=== PATIENT | female | born 1995 | race Caucasian/White ===

== ENCOUNTER 2024-12-25 09:49 | Outpatient (OUT) | payer OTHER, BC, SELFPAY | END 2024-12-25 09:50 | disposition home or self-care (01) | PROVIDERS: PCP Family Medicine; Visit Provider Obstetrics & Gynecology | DX: Z01.818 Encounter for other preprocedural examination (principal); R10.2 Pelvic and perineal pain; N80.9 Endometriosis, unspecified ==

== ENCOUNTER 2025-01-07 10:16 | Day surgery (SDC) | payer OTHER, BC, SELFPAY ==
[2024-12-25 10:33] VITALS: BP 131/87; PULSE 81; TEMP 36.6; O2SAT 99; BMI 54.7
--- NOTE | 2025-01-05 10:59 | PC.NURSE ---
Centerless Grinder Set Up Operator called pt. per Dr. Ventura's reqiest at 1053. Pt. is aware that her surgery is now scheduled for 1130 on 01/07/2025 and to arrive at the hospital at 10:15 for preop. Pt. acknowledges understanding of time.
[2025-01-07] VITALS (14 sets, daily range): BP systolic 128–164; BP diastolic 78–111; PULSE 79–106; TEMP 36.5–36.7; O2SAT 93–99; BMI 53.4
--- NOTE | 2025-01-07 06:00 | ECG_ITS ---
[facility] Test Date: 2025-01-07 Pat Name: WILTON MORENO Department: Room: - Gender: Female Rag Sorter And Cutter: : 1995 Requested By: 1850 Order Number: [id number] Reading MD: BIJU POLLOCK Measurements Intervals [place] Rate: 82 P: 4 IN: 162 QRS: 43 QRSD: 83 T: 38 QT: 369 QTc: 433 Interpretive Statements SINUS RHYTHM No previous ECG available for comparison Electronically Signed On 01-07-2025 19:10:38 EDT by BIJU POLLOCK
[2025-01-07 10:46] LABS: Hematocrit 37.8 % (36.0-48.0); Hemoglobin 11.7 g/dL (12.0-16.0); Immature Granulocytes Abs Auto 0.03 10^3/uL (0.00-0.03); Immature Granulocytes Pct Auto 0.4 % (0.0-0.5); Lymphocytes Absolute Auto 3.7 10^3/uL (1.2-3.8); Mean Corpuscular HGB Conc 31.0 g/dL (29.9-35.2); Mean Corpuscular Hemoglobin 22.7 pg (26.7-34.0); Mean Corpuscular Volume 73.4 fL (81.0-99.0); Platelet Count 480 10^3/uL (150-450); Red Blood Count 5.15 10^6/uL (4.20-5.40); White Blood Count 8.1 10^3/uL (4.0-11.0)
--- NOTE | 2025-01-07 11:05 | PC.NURSE ---
Robert BROOKS reviewed CBC results.
[2025-01-07] MEDS: LIDOCAINE 2% JELLY 10 ML UR (12:15)
--- NOTE | 2025-01-07 12:41 | P.ON_ITS ---
Brief Operative Note Date of procedure: 01/07/25 Pre-op diagnosis general: pelvic pain, pcos Post-op diagnosis: other (uterine polyp, subserosal uterine fibroid) Procedure: NAME OF PROCEDURE: [ D&c hysteroscopy with myosure,dx laparoscopy] findings;endometrial polyp, and anterior uterine fibroid PROCEDURE: The patient was taken back to the Operating Room where she was prepped and draped in normal sterile fashion after being placed under general anesthesia without difficulty. She was also placed in the dorsal lithotomy position. A weighted speculum was placed in the patient?s vagina. The anterior lip of the cervix was identified and grasped with a single tooth tenaculum. The patient?s uterus was then sounded roughly to [? 8] cm. The patient was then gently dilated using Hegar dilators. The hysteroscope was passed through the patient?s cervix into the uterus. Both ostia were identified. fluffy appearing endometrium. No gross evidence of malignancy, no gross evidence of polyps or fibroids. The myosure apparatus was placed through the scope, The myosure was engaged and endometrial curretting were removed along with endometrial polyp, The hysteroscope was then removed from the uterus. The endometrial curettings were sent out to pathology. The single tooth tenaculum was then removed from the patient's anterior lip of the cervix where excellent hemostasis was noted. All instruments were removed from the patient?s vagina. a sponge stick was placed into the patient's vagina. Attention was turned to the patient's abdomen, where a small umbilical incision was made. The fascia was tented using Lavon clamps and the fascia was entered sharply. Confirmation of intraabdominal placement of the 10 mm port was confirmed under direct visualization using a laparoscope. The patient's abdomen was then insufflated using CO2 gas with approximately 4 liters. A second port was placed left laterally, this was done under direct visualization with a 5 mm port. Survey of the patient's abdomen demonstrated normal liver and gallbladder. Survey of the patient's pelvic anatomy demonstrated normal appearing rt and lt ovary and tubes as well as normal appearing uterus, except for anterior uterine fibroid. No endometrial implants could be noted, no evidence of any pelvic disease was seen, normal appearing pelvic cavity. All instruments were removed from the patient's abdomen. The patient's abdomen was deinsufflated of CO2 gas. The patient tolerated the procedure well. Sponge stick was removed from the patient's vagina. The patient's infraumbilical fascia was closed using #0 Vicryl on a GI needle. The patient's skin was closed laterally and infraumbilically using 4-0 Vicryl. The patient tolerated the procedure well. Sponge, lap and needle counts were correct x 2. The patient was taken to Recovery Room in stable condition. Anesthesia: JERRY Surgeon: Gabriel Ventura Nailhead Operator: Melyssa Mullen Estimated blood loss (mL): 5 Pathology: other (endometrial currettings) Condition: stable Disposition: PACU Urinary Catheter Management Urinary Catheter Management Urethral: Cath placed during this visit: no
--- NOTE | 2025-01-07 14:36 | PC.NURSE ---
Pateint urinated blood tinged urine no clots
== END 2025-01-07 14:20 | disposition home or self-care (01) ==
LOC: SURGOUT 10:17
PROVIDERS: PCP Family Medicine; Visit Provider Obstetrics & Gynecology
PROC: (CPT 840; principal; 2025-01-07 11:30)
DX: R10.2 Pelvic and perineal pain (principal); N80.9 Endometriosis, unspecified; N84.0 Polyp of corpus uteri; Z87.891 Personal history of nicotine dependence; Z90.49 Acquired absence of other specified parts of digestive tract; E66.01 Morbid (severe) obesity due to excess calories; Z68.43 Body mass index [BMI] 50.0-59.9, adult
CPT/HCPCS: 49320; 58558; 36415; 82948; 84702; 85025; 93005; J0131; J0330; J1100; J1171; J1200; J1885; J2405; J2704

== ENCOUNTER 2025-01-21 12:15 | Outpatient (OUT) | payer OTHER, BC, SELFPAY ==
--- OUTSIDE RECORDS SUMMARY | 2025-01-08 13:30 | XMS_ITS | Encounter Summary ---
Author Organization [facility] Address [address] [place] [address] Care Team Providers Care Compressor Station Operator Name Role Phone Corona Marcus DO Primary Care Provider [phone] Reason for Referral * Imaging (Routine) - Authorized Specialty Diagnoses / Procedures Referred By Contac t Referred To Contact Radiology Diagnoses Lymphadenopathy, cervical Procedures CT soft tissue neck w IV contrast Bahman Lechuga DO [address] [place] [address] Phone: tel: fax: [facility] [address] [place] [address] fax: Referral ID Status Reason Start Date Expiration Date V isits Requested Visits Authorized [id number] Authorized 04/09/2025 10/06/2025 1 1 Reason for Visit * Reason Comments Swollen Glands New patient : shaquille miller lymph node Encounter Details Date Type Department Care Team (Late st Contact Info) Description 01/08/2025 1:30 PM EDT Office Visit [facility] [address] [place] [id number] Bahman Lechuga DO [address] [place] [address] Neck mass (Primary Dx); Lymphadenopathy, cervical Social History Tobacco Use Types Packs/Day Years Used Date Smoking Tobacco: Former Cigarettes Tobacco Cessation:Counseling Given: Not Answered Alcohol Use Standard Drinks/Week Comments Never 0 (1 standard drink = 0.6 oz pur e alcohol) Comments Unknown Sex and Gender Information Value Date Recorded Sex Assigned at Not on file Legal Sex Female 7:18 PM EDT Gender Identity Not on file Sexual Orientation Not on file documented as of this encounter Last Filed Vital Signs Vital Sign Reading Time Taken Comments Blood Pressure - - Pulse - - Temperature - - Respiratory Rate - - Oxygen Saturation - - Inhaled Oxygen Concentration - - Weight 129 kg (285 lb) 01/08/2025 1:40 PM EDT Height 154.9 cm (5' 1 ) 01/08/2025 1:40 PM EDT Body Mass Index 53.85 01/08/2025 1:40 PM EDT documented in this encounter Progress Notes * Bahman Lechuga, DO - 01/08/2025 1:30 PM EDT Subjective Patient ID: Lora Fischer is a 29 y.o. female who presents for Swollen Glands (New patient : swollen lymph node) HPI 29-year-old white female presents today for evaluation of enlarged lymph node of the right posterior neck. Patient describes enlargement of this mass to be present for the past several months. She also had some enlargement of lymph nodes under her jaw as result of recent dental work. Denies any pain. Does describe some fullness on the right side of her neck. She has undergone shoulder injury on that side in the past. Presents today for further evaluation and treatment Review of Systems This patient denies any pain or fever. Does describe some fullness on the right side of her neck. No longer having any dental pain. Was treated with Keflex by her dentist. She denies any shortness ofbreath. The rest of her review of systems is negative Allergies as of 01/08/2025 - Reviewed 01/08/2025 Allergen Reaction Noted Cephalosporins Rash 01/02/2025 Peanut butter flavoring agent (non-screening) Shortness of breath 02/02/2016 Penicillins Headache, Rash, Shortness of breath, and Swelling 02/14/2024 Past Medical History: Diagnosis Date Abnormal finding on MRI of brain 03/22/2024 ADHD (attention deficit hyperactivity disorder) Allergic rhinitis 01/08/2025 Anxiety Attention deficit hyperactivity disorder (ADHD) 01/08/2025 Cervical radiculopathy 01/08/2025 Elevated total protein 01/08/2025 Encounter for weight management 01/08/2025 Former smoker Gastroesophageal reflux disease 01/08/2025 Generalized anxiety disorder 04/05/2022 GERD (gastroesophageal reflux disease) Glaucoma suspect of both eyes 09/21/2017 Hearing loss on left 01/08/2025 Hearing problem 01/08/2025 Heartburn 08/31/2021 Heavy menstrual period 01/08/2025 Hirsutism 01/08/2025 History of being hospitalized 01/2023 ER - Pain/ HTN Joint instability 03/22/2024 Microcytic anemia 01/08/2025 Migraine 01/08/2025 Migraines Morbid obesity ([facility]) 01/08/2025 Morbid obesity with BMI of 45.0-49.9, adult ([facility]) Muscle tightness 03/22/2024 Myopia, 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 Neck mass 01/08/2025 Optic nerve asymmetry, 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 Otitis externa 01/08/2025 Periumbilical hernia 01/08/2025 Polycystic ovarian syndrome Polycystic ovaries 01/08/2025 Poor posture 01/08/2025 Rib pain 01/08/2025 Skin abnormalities 01/08/2025 Skin infection 01/08/2025 Skin mole 01/08/2025 Spasm of cervical paraspinous muscle 01/08/2025 Current Outpatient Medications: HYDROcodone-acetaminophen ([place]) 5-325 MG tablet, TAKE 1 TABLET BY MOUTH EVERY 4 HOURS NEEDED FOR PAIN FOR 4 DAYS, Disp: , Rfl: Iron Sucrose (VENOFER IV), Infuse 300 mg into a venous catheter 1 (one) time per week, Disp: , Rfl: metFORMIN XR (Glucophage-XR) 500 MG 24 hr tablet, Take 2 tablets (1,000 mg) by mouth in the evening. Take with meals Do not crush, chew, or split., Disp: 30 tablet, Rfl: 11 phentermine (Adipex-P) 37.5 MG tablet, Take 1 tablet (37.5 mg) by mouth in the morning. Take beforemeals., Disp: 30 tablet, Rfl: 0 phentermine (Adipex-P) 37.5 MG tablet, Take 1 tablet (37.5 mg) by mouth in the morning. Take beforemeals., Disp: 90 tablet, Rfl: 0 sulfamethoxazole-trimethoprim (Bactrim DS) 800-160 MG per tablet, Take 1 tablet by mouth every 12 (twelve) hours for 10 days, Disp: 20 tablet, Rfl: 0 Past Surgical History: Procedure Laterality Date CHOLECYSTECTOMY GA TONSILLECTOMY & ADENOIDECTOMY AGE 11/> 06/02/2005 UMBILICAL HERNIA REPAIR 04/2024 had abcess around Social History Socioeconomic History Marital status: Spouse name: Not on file Number of children: Not on file Years of education: Not on file Highest education level: Not on file Occupational History Not on file Tobacco Use Smoking status: Former Types: Cigarettes Smokeless tobacco: Not on file Substance and Sexual Activity Alcohol use: Never Drug use: Never Sexual activity: Not on file Other Topics Concern Not on file Social History Narrative Not on file Social Drivers of Health Financial Resource Strain: Not on file Food Insecurity: Not on file Transportation Needs: Not on file Physical Activity: Not on file Stress: Not on file Social Connections: Not on file Intimate Partner Violence: Not on file Housing Stability: Not on file Objective ENT Physical Exam General Examination: General overview: Normal, age-appropriate, no evidence of distress, obese Head: Normocephalic, atraumatic Eyes: Pupils are equally round and reactive to light and accommodation, extraocular muscles are intact Ears: External ear architecture within normal limits, ear canals are patent, tympanic membranes areintact. Nose: External nose unremarkable, nares patent, septum intact, no evidence of congestion. Oral cavity: Mucosa moist, no evidence of ulcer, mass, or lesion Throat: Clear Neck/thyroid: Neck supple, full range of motion, no cervical lymphadenopathy, no evidence of thyromegaly. Significant soft tissue redundancy. There is some mild fullness of the posterior neck on the right side. This fullness is confirmed with an enlarged lymph node noted on CAT scan. Other lymph nodes of the CAT scan are less than dominant size. She does not have any evidence of significant large scale lymphadenopathy. Lymph nodes: No cervical lymphadenopathy Skin: Warm and dry, no evidence of suspicious lesions, no rash Heart: No jugular venous distention, point of maximal impulse normal Lungs: Good air movement, no audible wheezing, no shortness of breath Chest: Normal shape and expansion Abdomen: Normal, soft, nontender, nondistended Musculoskeletal: Cervical spine normal, full range of motion Extremities: No clubbing, cyanosis, or edema Peripheral pulses: 2+ radial, 2+ carotid Neurologic: Alert and oriented, cranial nerves 2-12 are grossly intact Psych: Alert and oriented, normal affect, no evidence of distress Assessment/Plan Diagnoses and all orders for this visit: Neck mass Comments: I do recommend repeat CAT scan of her neck in 3 months to look for interval change. Lymphadenopathy, cervical Comments: Will place this patient on a course of antibiotic to cover for any possible low- grade infection that may have resulted in her lymph node enlargement. Orders: - CT soft tissue neck w IV contrast; Future - Creatinine, Serum; Future - sulfamethoxazole-trimethoprim (Bactrim DS) 800-160 MG per tablet; Take 1 tablet by mouth every 12(twelve) hours for 10 days documented in this encounter Plan of Treatment Upcoming Encounters Date Type Department Care Team (Late st Contact Info) Description 01/23/2025 1:50 PM EDT Office Visit [facility] [address] [facility] [place] [address] Gabriel Ventura DO [address] [facility] [address] [place] [address] 04/09/2025 2:15 PM EST Office Visit [facility] [address] [place] [id number] Bahman Lechuga DO [address] [place] [address] Scheduled Orders Name Type Priority Associated Diagnoses Orde r Schedule CT soft tissue neck w IV contrast Imaging Routine Lymphadenopathy, cervical Expected: 04/09/2025, Expires: 01/08/2026 Creatinine, Serum Lab Routine Lymphadenopathy, cervical Expected: 01/08/2025 (Approximate), Expires: 01/08/2026 documented as of this encounter Visit Diagnoses Diagnosis Neck mass- Primary Swelling, mass, or lump in head and neck Lymphadenopathy, cervical documented in this encounter Care Teams Compressor Station Operator Relationship Specialty Start Date End Date Corona Marcus DO [address] [facility] [address] [place] [address] PCP - General Family Medicine 10/10/23 documented as of this encounter
--- OUTSIDE RECORDS SUMMARY | 2025-01-21 12:20 | XMS_ITS | Encounter Summary ---
Author Organization [facility] Address [address] [facility] [place] [address] Care Team Providers Care Finish Mender Name Role Phone LorettaCorona garcia Horace PAGE Primary Care Provider Encounter Details Date Type Department Care Team (Late st Contact Info) Description 01/08/2025 Bamboo flowsheet [facility] [address] [place] [phone] Bahman Lechuga, DO [address] [place] [address] Social History Tobacco Use Types Packs/Day Years Used Date Smoking Tobacco: Former Cigarettes Alcohol Use Standard Drinks/Week Comments Never 0 (1 standard drink = 0.6 oz pur e alcohol) Comments Unknown Sex and Gender Information Value Date Recorded Sex Assigned at Not on file Legal Sex Female 7:18 PM EDT Gender Identity Not on file Sexual Orientation Not on file documented as of this encounter Plan of Treatment Upcoming Encounters Date Type Department Care Team (Late st Contact Info) Description 01/23/2025 1:50 PM EDT Office Visit GISELA DEV[facility] [address] [place] [address] Gabriel Ventura DO [address] [facility] [place] [address] 04/09/2025 2:15 PM EST Office Visit [facility] [address] [place] [address] Bahman Lechuga DO [address] [place] [address] documented as of this encounter Visit Diagnoses Not on filedocumented in this encounter Care Teams Finish Mender Relationship Specialty Start Date End Date Corona Marcus DO [address] [facility] [address] [place] [address] PCP - General Family Medicine 10/10/23 documented as of this encounter
--- OUTSIDE RECORDS SUMMARY | 2025-01-21 12:20 | XMS_ITS | Encounter Summary ---
Author Organization [facility] Address [address] [facility] [place] [address] Care Team Providers Care Housing Counselor Name Role Phone Corona Marcus Primary Care Provider Encounter Details Date Type Department Care Team (Late st Contact Info) Description 12/25/2024 Abstract [facility] [address] [place] [address] Gabriel Ventura DO [facility] [address], [place] [address] Social History Tobacco Use Types Packs/Day Years [...] Description 01/23/2025 1:50 PM EDT Office Visit [facility] [address] [place] [address] Gabriel Ventura DO [address] [place], [place] [id number] 04/09/2025 2:15 PM EST Office Visit [facility] [address] [place] [address] Bahman Lechuga, DO [address] [facility] [place] [address] documented as of this encounter Visit Diagnoses Not on filedocumented in this encounter Care Teams Housing Counselor Relationship Specialty Start Date End Date Corona Marcus DO [address] [place] [address] [address] [place] [address] PCP - General Family Medicine 10/10/23 documented as of this encounter
--- OUTSIDE RECORDS SUMMARY | 2025-01-21 12:20 | XMS_ITS | Encounter Summary ---
Author Organization [facility] Address [address] [place] [address], [address] [place] [address] Care Team Providers Care Software Educator Name Role Phone Unavailable Primary Care Provider Unavailabl e Reason for Referral * Imaging (Routine) - Open Specialty Diagnoses / Procedures Referred By Contac t Referred To Contact Diagnoses Cardiomegaly Procedures Echo (TTE) complete (PRN contrast/bubble/strain/3D) W[place] ECHO TTHRC R-T 2D W/WOM-MODE COMPL SPEC&COLR D W[place] TTE W OR WO FOL WCON,DOPPLER Aj Dallas MD [address] [place] [address] Phone: tel: Referral ID Status Reason Start Date Expiration Date Visits Re quested Visits Authorized [id number] Open 02/14/2024 02/13/2025 1 1 Encounter Details Date Type Department Care Team (Latest Contact Info) Description 02/14/2024 Transcribe Orders Odom Pre Access [address] [place] [id number] Aj Dallas MD [address] [place] [address] Cardiomegaly (Primary Dx) Social History Tobacco Use Types Packs/Day Years Used Date Smoking Tobacco: Never Assessed Comments Unknown Sex and Gender Information Value Date Recorded Sex Assigned at Not on file Legal Sex Female 1:44 PM EDT Gender Identity Not on file Sexual Orientation Not on file documented as of this encounter Plan of Treatment Scheduled Orders Name Type Priority Associated Diagnoses Orde r Schedule Echo (TTE) complete (PRN contrast/bubble/st rain/3D) CV Echocardiography Routine Cardiomegaly Expected: 02/14/2024, Expires: 02/13/2025 documented as of this encounter Visit Diagnoses Diagnosis Cardiomegaly- Primary documented in this encounter
--- OUTSIDE RECORDS SUMMARY | 2025-01-21 12:20 | XMS_ITS | Encounter Summary ---
Author Organization [facility] Address [address] [facility] [place] [address] Care Team Providers Care Metal Work Duct Installer Name Role Phone Corona Marcus Primary Care Provider Encounter Details Date Type Department Care Team (Late st Contact Info) Description 01/07/2025 Abstract [facility] [address] [place] [address] Gabriel Ventura DO [facility] [address], [place] [address] Social History Tobacco Use Types Packs/Day Years [...] Office Visit [facility] [address] [place] [address] Gabriel Ventura DO [address] [place], [place] [id number] 04/09/2025 2:15 PM EST Office Visit [facility] [address] [place] [phone] Bahman Lechuga, DO [address] [place] [address] documented as of this encounter Visit Diagnoses Not on filedocumented in this encounter Care Teams Metal Work Duct Installer Relationship Specialty Start Date End Date Corona Marcus DO [address] [place] [address] [address] [place] [address] PCP - General Family Medicine 10/10/23 documented as of this encounter
--- OUTSIDE RECORDS SUMMARY | 2025-01-21 12:20 | XMS_ITS | Clinical Summary ---
Author Organization [facility] Address [address] [place] [address] Phone Care Team Providers Care Cost Control Analyst Name Role Phone Corona Marcus DO Primary Care Provider + Social History Tobacco Use Types Packs/Day Years Used Date Smoking Tobacco: Never Assessed Comments Unknown Sex and Gender Information Value Date Recorded Sex Assigned at Not on file Legal Sex Female 9:19 AM EST Gender Identity Not on file Sexual Orientation Not on file Last Filed Vital Signs Vital Sign Reading Time Taken Comments Blood Pressure 135/83 04/27/2023 12:46 PM EST Pulse 77 04/27/2023 12:46 PM EST Temperature - - Respiratory Rate - - Oxygen Saturation 99% 04/27/2023 12:46 PM EST Inhaled Oxygen Concentration - - Weight - - Height - - Body Mass Index - - Plan of Treatment Health Maintenance Due Date Last Done Comments HIV Screening 1994 Lipid Panel 1994 Yearly Adult Physical 1994 MMR Vaccines (1 of 1 - Stand vivian series) 1995 Hepatitis C Screening 2012 Hepatitis B Vaccines (1 of 3 - 19+ 3-dose series) 2013 Cervical Cancer Screening 2015 HPV/Cotest 2015 Pap Smear 2015 DTaP/Tdap/Td Vaccines (1 - Tdap) 2016 HPV Vaccines (1 - 3-dose sta ndard series) 2021 COVID-19 Vaccine ( - 2023-2 5 season) 2024 Influenza Vaccine (#1) 2024 Zoster Vaccines (1 of 2) 2044 HIB Vaccines Aged Out No longer eligi ble based on patient's age to complete this topic Hepatitis A Vaccines Aged Out No long er eligible based on patient's age to complete this topic IPV Vaccines Aged Out No longer eligi ble based on patient's age to complete this topic Meningococcal Vaccine Aged Out No will irene eligible based on patient's age to complete this topic Pneumococcal Vaccine: Pediat rics and At-Risk Adult Patients Aged Out No longer iglesia gible based on patient's age to complete this topic Rotavirus Vaccines Aged Out No longer eligible based on patient's age to complete this topic Insurance [facility] Care Teams Cost Control Analyst Relationship Specialty Start Date End Date Corona Marcus DO [address] [place] [address] PCP - General Family Medicine 04/27/23
--- OUTSIDE RECORDS SUMMARY | 2025-01-21 12:20 | XMS_ITS | Clinical Summary ---
Author Organization [facility] Address [facility] [place] [id number] [address] [place] [address] Care Team Providers Care Plant Wrapper Name Role Phone Aj Dallas MD Primary Care Provider [phone] Allergies No known active allergies Medications No known medications Active Problems Problem Noted Date Diagnosed Date Heartburn 08/31/2021 Family History Medical History Relation Name Comments Heart attack Father Stroke Father Relation Name Status Comments Brother Alive Father Alive Mother Alive Sister Alive Social History Tobacco Use Types Packs/Day Years Used Date Smoking Tobacco: Never Smokeless Tobacco: Never Alcohol Use Standard Drinks/Week Comments Never 0 (1 standard drink = 0.6 oz pur e alcohol) Comments Unknown Sex and Gender Information Value Date Recorded Sex Assigned at Not on file Legal Sex Female 11:34 AM EDT Gender Identity Not on file Sexual Orientation Not on file Last Filed Vital Signs Vital Sign Reading Time Taken Comments Blood Pressure - - Pulse - - Temperature 36.8 C (98.2 F) 08/31/2021 1:10 PM EDT Respiratory Rate - - Oxygen Saturation - - Inhaled Oxygen Concentration - - Weight 143.3 kg (316 lb) 08/31/2021 1:10 PM EDT Height - - Body Mass Index - - Plan of Treatment Health Maintenance Due Date Last Done Comments Depression Screening 2006 Tobacco Screening 2006 Adult BMI Screening 2012 DTaP,Tdap and Td Vaccines (1 - Tdap) 2013 Pap Smear 2015 Influenza Vaccine 12/31/2024 Medical Devices Not on file Insurance [employer] Care Teams Plant Wrapper Relationship Specialty Start Date End Date Aj Dallas MD [address] [place] [address] PCP - General Family Medicine 02/13/24
--- OUTSIDE RECORDS SUMMARY | 2025-01-21 12:20 | XMS_ITS | Encounter Summary ---
Author Organization [facility] Address [address] [facility] [address] Care Team Providers Care Microsoft Dynamics Consultant Name Role Phone LorettaCorona garcia Horace PAGE Primary Care Provider Encounter Details Date Type Department Care Team (Latest Contact Info) Description 01/08/2025 Travel Social History Tobacco Use Types Packs/Day Years [...] 01/23/2025 1:50 PM EDT Office Visit [facility] Alex OBASYA [address] [place] [address] Gabriel Ventura DO [address] [facility] [address] [place], [place] [id number] 04/09/2025 2:15 PM EST Office Visit [facility] [address] [place] [address] Bahman Lechuga, DO [address] [place] [address] documented as of this encounter Visit Diagnoses Not on filedocumented in this encounter Care Teams Microsoft Dynamics Consultant Relationship Specialty Start Date End Date Corona Marcus DO [address] [facility] [address] [place] [address] PCP - General Family Medicine 10/10/23 documented as of this encounter
--- OUTSIDE RECORDS SUMMARY | 2025-01-21 12:20 | XMS_ITS | Encounter Summary ---
Author Organization [facility] Address [address] [facility] [place] [address] Care Team Providers Care Junior Systems Administrator Name Role Phone LroettaCorona garcia Primary Care Provider Encounter Details Date Type Department Care Team (Late st Contact Info) Description 01/07/2025 External Result Encounter N[facility] External Department Unsolicited Gabriel Ventura DO [address] [place] [address] Social History Tobacco Use Types Packs/Day Years [...] EDT Office Visit NOM[facility] DEVINE [address] [place] [address] Gabriel Ventura DO [address] [place] [id number] 04/09/2025 2:15 PM EST Office Visit [facility] [address] [place] [address] Bahman Lechuga DO [address] [facility] [place] [address] documented as of this encounter Procedures Procedure Name Priority Date/Time Associated Diagnosis Comments PATHOLOGY REQUEST FOR LAB EMMA Routine 01/07/2025 12:37 PM EDT documented in this encounter Results * PATHOLOGY REQUEST FOR LAB EMMA (01/07/2025 12:37 PM EDT) PATHOLOGY REQUEST FOR LAB EMMA 01/18/2025 8:11 AM EDT [facility] Comment:See report. Scanned copy available in EMR. Other Topography unknown / Unknown 01/07/2025 12:37 PM EDT 01/08/2025 2:07 PM EDT Gabriel Ventura DO LAB BLOOD ORDERABLES Final Resul t [facility] [address] [place] [address], [facility] [address] [place] [address] documented in this encounter Visit Diagnoses Not on filedocumented in this encounter Care Teams Junior Systems Administrator Relationship Specialty Start Date End Date Corona Marcus DO [address] [place] [address] [address] [place] [address] PCP - General Family Medicine 10/10/23 documented as of this encounter
--- OUTSIDE RECORDS SUMMARY | 2025-01-21 12:20 | XMS_ITS | Clinical Summary ---
Author Organization [facility] Address [address] [place] [address] Care Team Providers Care Facilities Planner Name Role Phone Corona Marcus DO Primary Care Provider Allergies Active Allergy Reactions Criticality Noted Date Comments Cephalosporins Rash High 01/02/2025 chest heavyness Peanut Butter Flavoring Agent (Non-Screening) Shortness of breath High 02/02/2016 Penicillins Headache,Rash,Short ness of breath,Swelling High 02/14/2024 Other Reaction(s): Congestion Medications Iron Sucrose (VENOFER IV) Infuse 300 mg into a venous catheter 1 (one) time per week Active phentermine (Adipex-P) 37.5 MG tabletIndicatio ns:Encounter for weight management Take 1 tablet (37.5 mg) by mouth in the morning. Take before meals. 30 tablet 5 Active metFORMIN XR (Glucophage-XR) 500 MG 24 hr tabletIndicatio ns:Encounter for weight management Take 2 tablets (1,000 mg) by mouth in the evening. Take with meals Do not crush, chew, or split. 30 tablet 11 5 Active phentermine (Adipex-P) 37.5 MG tabletIndicatio ns:Encounter for weight management Take 1 tablet (37.5 mg) by mouth in the morning. Take before meals. 90 tablet 5 04/02/20 25 Active HYDROcodone-que taminophen ([place]) 5-325 MG tablet TAKE 1 TABLET BY MOUTH EVERY 4 HOURS NEEDED FOR PAIN FOR 4 DAYS Active sulfamethoxazol e-trimethoprim (Bactrim DS) 800-160 MG per tabletIndicatio ns:Lymphadenopa thy, cervical Take 1 tablet by mouth every 12 (twelve) hours for 10 days 20 tablet 01/19/20 25 Active Problems Problem Noted Date Diagnosed Date Primary insomnia 03/29/2023 Hypersomnia 03/29/2023 Paresthesias 03/07/2023 Pre-syncope 03/04/2023 Resolved Problems Problem Noted Date Diagnosed Date Resolved Date Allergic rhinitis 01/08/2025 01/08/2025 Attention deficit hyperactiv ity disorder (ADHD) 01/08/2025 01/08/2025 Cervical radiculopathy 01/08/202501/08 Elevated total protein 01/08/202501/08 Encounter for weight management 01/08/2025 01/08/2025 Gastroesophageal reflux disease 01/08/2025 01/08/2025 Hearing loss on left 01/08/2025 025 Hearing problem 01/08/2025 01/08/2025 Heavy menstrual period 01/08/202501/08 Hirsutism 01/08/2025 01/08/2025 Microcytic anemia 01/08/2025 01/08/2025 Migraine 01/08/2025 01/08/2025 Morbid obesity 01/08/2025 01/08/2025 Otitis externa 01/08/2025 01/08/2025 Periumbilical hernia 01/08/2025 025 Polycystic ovaries 01/08/2025 Poor posture 01/08/2025 01/08/2025 Rib pain 01/08/2025 01/08/2025 Skin abnormalities 01/08/2025 Skin infection 01/08/2025 01/08/2025 Skin mole 01/08/2025 01/08/2025 Neck mass 01/08/2025 01/08/2025 Spasm of cervical paraspinous muscle 01/08/2025 01/08/2025 Abnormal finding on MRI of brain 03/22/2024 01/08/2025 Joint instability 03/22/2024 01/08/2025 Muscle tightness 03/22/2024 01/08/2025 Generalized anxiety disorder 04/05/2022 01/08/2025 Heartburn 08/31/2021 01/08/2025 Myopia, 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 01/08/2025 Optic nerve asymmetry, 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 01/08/2025 Glaucoma suspect of both eyes 09/21/2017 01/08/2025 Encounters Date Type Department Care Team Description 01/21/2025 Telephone [facility] YANGN [address] [place] [address] Gabriel Ventura, DO 01/10/2025 Abstract [facility] DEVINE [address] [place] [address] Gabriel Ventura, DO 01/10/2025 Telephone [facility] YANGN [address] [facility] [place] [address] Marilin Montiel LPN 01/08/2025 1:30 PM EDT Office Visit [facility] [address] [place] [address] Bahman Lechuga, DO Neck mass (Primary Dx); Lymphadenopathy, cervical 01/08/2025 Bamboo flowsheet [facility] [address] [place] [address] Bahman Lechuga, DO 01/08/2025 Travel 01/07/2025 External Result Encounter NOMS External Department Unsolicited Gabriel Ventura, DO 01/07/2025 Abstract [facility] OHGYN [address] [place] [address] Gabriel Ventura, DO 01/07/2025 Clinisync Result Encounter NOMS External Department Unsolicited Gabriel Ventura, DO 01/02/2025 3:30 PM EDT Office Visit [facility] DEVINE [address] [place] [address] Era Josue PA Encounter for weight management 01/02/2025 Bamboo flowsheet [facility] [address] [facility] [place] [address] Era Josue PA 12/25/2024 Abstract [facility] OHGYN [address] [facility] [place] [address] Gabriel Ventura DO 12/10/2024 1:10 PM EDT Office Visit [facility] DEVINE [address] [facility] [place] [address] Gabriel Ventura DO Endometriosis; Encounter for weight management; Pre-op examination; Pelvic pain 12/10/2024 Bamboo flowsheet [facility] [address] [facility] [place] [address] Gabriel Ventura DO 12/10/2024 Travel 11/05/2024 2:30 PM EDT Office Visit NOMKhari DEVINE [address] [facility] [address] Era Josue PA Encounter for weight management 11/05/2024 1:00 PM EDT Ancillary Procedure NOM[facility]ari DEVINE [address] [facility] [place] [address] PCOS (polycystic ovarian syndrome); Abnormal uterine bleeding (AUB) 11/05/2024 Travel from Last 3 Months Family History Medical History Relation Name Comments Cardiac arrest Father Mental illness Father Stroke Father Alcohol abuse Mother Hypertension Mother No Known Problems Other Grandparents Relation Name Status Comments Father Mother Other Grandparents Social History Tobacco Use Types Packs/Day Years [...] Sign Reading Time Taken Comments Blood Pressure 118/74 01/02/2025 4:05 PM EDT Pulse 77 03/29/2023 4:15 PM EST Temperature - - Respiratory Rate 16 03/29/2023 4:15 PM EST Oxygen Saturation 97% 03/29/2023 4:15 PM EST Inhaled Oxygen Concentration - - Weight 129 kg (285 lb) 01/08/2025 1:40 PM EDT Height 154.9 cm (5' 1 ) 01/08/2025 1:40 PM EDT Body Mass Index 53.85 01/08/2025 1:40 PM EDT Plan of Treatment Upcoming Encounters Date Type Department Care Team (Late st Contact Info) Description 01/23/2025 1:50 PM EDT Office Visit [facility] Isai OBGYJudith [address] [facility] [place] [address] Gabriel Ventura DO [address] [facility] [address] 04/09/2025 2:15 PM EST Office Visit [facility] [address] [place] [address] Bahman Lechuga, DO [address] [place] [address] Procedures Procedure Name Priority Date/Time Associated Diagnosis Comments PATHOLOGY REQUEST FOR LAB EMMA Routine 01/07/2025 12:37 PM EDT ALL CBC WITH AUTO DIFF Routine 01/07/2025 10:21 AM EDT TBH PREG QUANT HCG Routine 01/07/2025 10 :21 AM EDT US PELVIC COMPLETE W/ TV Routine 11/05/2024 1:25 PM EDT PCOS (polycystic ovarian syndrome) Abnormal uterine bleeding (AUB) from Last 3 Months Results * PATHOLOGY REQUEST FOR LAB EMMA (01/07/2025 12:37 PM EDT) PATHOLOGY REQUEST FOR LAB EMMA 01/18/2025 8:11 AM EDT [facility] Comment:See report. Scanned copy available in EMR. Other Topography unknown / Unknown 01/07/2025 12:37 PM EDT 01/08/2025 2:07 PM EDT Gabriel Audrey DO LAB BLOOD ORDERABLES Final Resul t Performing Organization Address City/[facility]/ZIP Co de Phone Number [facility] [address] [place] [id number], [place] [address] [place] [phone] * TBH PREG QUANT HCG (01/07/2025 10:21 AM EDT) [facility] HCG QUANTITATIVE <1 mIU/mL TBH Comment: 5-50 0.2-1 WEEK 50-500 1-2 WEEKS 100-5,000 2-3 WEEKS 500-10,000 3-4 WEEKS 1,000-50,000 4-5 WEEKS 10,000-100,000 5-6 WEEKS 15,000-200,000 6-8 WEEKS 10,000-100,000 2-3 MONTHS 01/07/2025 10:2 1 AM EDT 01/07/2025 10:22 AM EDT Narrative CLINISYNC - 01/07/2025 10:49 AM EDT Gabriel Audrey DO CLINISYNC Final Result CLINISYNC TB * (ABNORMAL) ALL CBC WITH AUTO DIFF (01/07/2025 10:21 AM EDT) [facility] TBH WBC 8.1 4.0 - 11.0 10 3/uL TBH TBH RBC 5.15 4.20 - 5.40 10 6/uL TBH TBH HGB 11.7(L) 12.0 - 16.0 g/dL TBH TBH HCT 37.8 36.0 - 48.0 % TBH TBH MCV 73.4(L) 81.0 - 99.0 fL TBH TBH MCH 22.7(L) 26.7 - 34.0 pg TBH TBH MCHC 31.0 29.9 - 35.2 g/dL TBH TBH RDW 24.6(H) 11.0 - 15.0 % TBH Comment:ANISOCYTOSIS 1+ TBH PLT 480(H) 150 - 450 10 3/uL TBH TBH MPV 8.5(L) 9.5 - 13.5 fL TBH NEUTROPHILS PERCENT AUTO 42.7(L) 43.0 - 75.0 % TBH LYMPHOCYTES PERCENT AUTO 45.2 20.5 - 60.0 % TBH MONOCYTES PERCENT AUTO 5.9 1.7 - 12.0 % TBH TBH EO % 5.1 0.9 - 7.0 % TBH BASOPHILS PERCENT AUTO 0.7 0.2 - 2.0 % TBH IMMATURE GRANULOCYTES PCT AUTO 0.4 0.0 - 0.5 % TBH NEUTROPHILS ABSOLUTE AUTO 3.5 1.4 - 6.5 10 3/uL TBH LYMPHOCYTES ABSOLUTE AUTO 3.7 1.2 - 3.8 10 3/uL TBH MONOCYTES ABSOLUTE AUTO 0.5 0.3 - 0.8 10 3/uL TBH TBH EO # 0.4 0.0 - 0.7 10 3/uL TBH BASOPHILS ABSOLUTE AUTO 0.1 0.0 - 0.1 10 3/uL TBH IMMATURE GRANULOCYTES ABS AUTO 0.03 0.00 - 0.03 10 3/uL TBH 01/07/2025 10:2 1 AM EDT 01/07/2025 10:22 AM EDT Narrative CLINISYNC - 01/07/2025 10:58 AM EDT us Gabriel Audrey DO CLINISYNC Final Result [facility] * US Pelvis w/ TV (11/05/2024 1:25 PM EDT) Anatomical Region Laterality Modality Pelvis Ultrasound 11/06/2024 1:00 PM EDT Impressions 11/06/2024 2:43 PM EDT 1. 14 mm endometrial thickness, no cystic changes or focal mass. 2. Probable anterior uterine body intramural fibroid TRANSCRIBED BY: ELECTRONICALLY SIGNED BY: Roberto Brown MD Narrative 11/06/2024 2:43 PM EDT FINDINGS: Uterus 9.0 x 5.1 x 5.1 cm Endometrium 14 mm Right ovary 3.2 x 2.8 x 2.6 cm Left ovary Not seen Anteversion and anteflexion of the uterine body/fundus. Heterogeneous anterior uterine body, 2 x 2 cm area, likely intramural fibroid. No pelvic fluid. 14 mm endometrium, no cystic changes. No primary endometrial nodule or mass. Nonvisualization of the left ovary. No left adnexal mass. Normal right ovary, several 4-6 mm follicles. No neighboring fluid or shadowing. Procedure Note Roberto Brown MD - 11/06/2024 FINDINGS: Uterus 9.0 x 5.1 x 5.1 cm Endometrium 14 mm Right ovary 3.2 x 2.8 x 2.6 cm Left ovary Not seen Anteversion and anteflexion of the uterine body/fundus. Heterogeneousanterior uterine body, 2 x 2 cm area, likely intramural fibroid. No pelvic fluid. 14 mm endometrium, no cystic changes. No primary endometrial nodule ormass. Nonvisualization of the left ovary. No left adnexal mass. Normal rightovary, several 4-6 mm follicles. No neighboring fluid or shadowing. IMPRESSION: 1. 14 mm endometrial thickness, no cystic changes or focal mass. 2. Probable anterior uterine body intramural fibroid TRANSCRIBED BY: ELECTRONICALLY SIGNED BY: Roberto Brown MD Gabriel Ventura DO [facility] [place] PROCEDURES Final Result from Last 3 Months Insurance [facility] Care Teams Facilities Planner Relationship Specialty Start Date End Date Corona Marcus DO [facility] [address] [place] [address] PCP - General Family Medicine 10/10/23
--- OUTSIDE RECORDS SUMMARY | 2025-01-21 12:20 | XMS_ITS | Clinical Summary ---
Author Organization [facility] Address [address] [place] [address], [address] [place] [address] Care Team Providers Care Pitch Gatherer Name Role Phone Unavailable Primary Care Provider Unavailabl e Allergies Active Allergy Reactions Criticality Noted Date Comments Peanut Butter Flavoring Agen t (Non-Screening) Shortness Of Breath High 02/02/2016 Medications omeprazole (PRILOSEC) 20 MG delayed release capsule Take 20 mg by mouth Daily Active naproxen (NAPROSYN) 500 MG tablet Take 1 tablet by mouth 2 times daily for 20 doses 30 tablet 02/02/2016 Active Social History Tobacco Use Types Packs/Day Years Used Date Smoking Tobacco: Never Assessed Comments Unknown Sex and Gender Information Value Date Recorded Sex Assigned at Not on file Legal Sex Female 1:44 PM EDT Gender Identity Not on file Sexual Orientation Not on file Last Filed Vital Signs Vital Sign Reading Time Taken Comments Blood Pressure 122/69 02/02/2016 4:10 PM EDT Pulse 94 02/02/2016 4:10 PM EDT Temperature 36.9 C (98.5 F) 02/02/2016 1:47 PM EDT Respiratory Rate 16 02/02/2016 4:10 PM EDT Oxygen Saturation 99% 02/02/2016 4:10 PM EDT Inhaled Oxygen Concentration - - Weight 108 kg (238 lb 1.6 oz) 02/02/2016 1:47 PM EDT Height 157.5 cm (5' 2 ) 02/02/2016 1:47 PM EDT Body Mass Index 43.55 02/02/2016 1:47 PM EDT Plan of Treatment Not on file Insurance PENDING MEDICAID on file [place]ICAID [place]
--- OUTSIDE RECORDS SUMMARY | 2025-01-21 12:20 | XMS_ITS | Encounter Summary ---
Author Organization [facility] Address [address] [place] [address] Care Team Providers Care Needleworker Name Role Phone Corona Marcus DO Primary Care Provider Encounter Details Date Type Department Care Team (Late st Contact Info) Description 01/21/2025 Telephone [facility] [address] [place] [address] Gabriel Ventura DO [address] [place], [facility] Social History Tobacco Use Types Packs/Day Years [...] on file documented as of this encounter Miscellaneous Notes * Telephone Encounter - Danielle Mcduffie LPN - 01/21/2025 11:55 AM EDT Patient called and she states that she was at the ER on Tuesday for losing blood after procedue and they patched her through to Dr and labs were to be ordered and she is at [facility] and they are stating these are not there. Patient was advised would send at this time for he. documented in this encounter Plan of Treatment Upcoming Encounters Date Type Department Care Team (Late st Contact Info) Description 01/23/2025 1:50 PM EDT Office Visit G[facility]ELA Alex OBGYJudith [address] [facility] [place] [address] Gabriel Ventura DO [address] [facility] [place] [address] 04/09/2025 2:15 PM EST Office Visit [facility] [address] [place] [address] Bahman Lechuga, DO [address] [place] [address] Scheduled Orders Name Type Priority Associated Diagnoses Orde r Schedule Ferritin Lab Routine Endometriosis Abnormal uterine bleeding (AUB) PCOS (polycystic ovarian syndrome) Expected: 01/21/2025 (Approximate), Expires: 01/21/2026 Transferrin Lab Routine Endometriosis Abnormal uterine bleeding (AUB) PCOS (polycystic ovarian syndrome) Expected: 01/21/2025, Expires: 01/21/2026 CBC and differential Lab Routine Endometriosis Abnormal uterine bleeding (AUB) PCOS (polycystic ovarian syndrome) Expected: 01/21/2025 (Approximate), Expires: 01/21/2026 documented as of this encounter Visit Diagnoses Diagnosis Endometriosis Endometriosis, site unspecified Abnormal uterine bleeding (AUB) PCOS (polycystic ovarian syndrome) Polycystic ovaries documented in this encounter Care Teams Needleworker Relationship Specialty Start Date End Date Corona Marcus DO [address] [place] [address] PCP - General Family Medicine 10/10/23 documented as of this encounter
--- OUTSIDE RECORDS SUMMARY | 2025-01-21 12:20 | XMS_ITS | Encounter Summary ---
Author Organization [facility] Address [address] [facility] [place] [address] Care Team Providers Care J2Ee Software Engineer Name Role Phone LorettaCorona garcia Primary Care Provider Encounter Details Date Type Department Care Team (Late st Contact Info) Description 01/07/2025 Clinisync Result Encounter NOMS External Department Unsolicited Gabriel Ventura DO [address] [place] [address] Social History Tobacco Use Types Packs/Day Years [...] EDT Office Visit NOM[facility]ari Alex OBASYA [address] [place] [address] Gabriel Ventura DO [address] [place] [id number] 04/09/2025 2:15 PM EST Office Visit [facility] [address] [place] [address] Bahman Lechuga, DO [address] [place] [address] documented as of this encounter Procedures Procedure Name Priority Date/Time Associated Diagnosis Comments TBH PREG QUANT HCG Routine 01/07/2025 10 :21 AM EDT ALL CBC WITH AUTO DIFF Routine 01/07/2025 10:21 AM EDT documented in this encounter Results * (ABNORMAL) ALL CBC WITH AUTO DIFF (01/07/2025 10:21 AM EDT) TBH WBC 8.1 4.0 - 11.0 10 [...] us Gabriel Audrey DO CLINISYNC Final Result CLINISYNC TBH * TBH PREG QUANT HCG (01/07/2025 10:21 AM EDT) HCG QUANTITATIVE <1 mIU/mL TBH Comment: 5-50 0.2-1 WEEK 50-500 1-2 WEEKS 100-5,000 2-3 WEEKS 500-10,000 3-4 WEEKS 1,000-50,000 4-5 WEEKS 10,000-100,000 5-6 WEEKS 15,000-200,000 6-8 WEEKS 10,000-100,000 2-3 MONTHS 01/07/2025 10:2 1 AM EDT 01/07/2025 10:22 AM EDT Narrative CLINISYNC - 01/07/2025 10:49 AM EDT Gabriel Audrey DO CLINISYNC Final Result CLINISYNC TBH documented in this encounter Visit Diagnoses Not on filedocumented in this encounter Care Teams J2Ee Software Engineer Relationship Specialty Start Date End Date Corona Marcus DO [address] [facility] [address] [place] [address] PCP - General Family Medicine 10/10/23 documented as of this encounter
--- OUTSIDE RECORDS SUMMARY | 2025-01-21 12:20 | XMS_ITS | Clinical Summary ---
Author Organization [facility] Address [address] [place], [place] [address] Care Team Providers Care Laboratory Administrative Director Name Role Phone Surinder Mackey MD Unavailable [phone] Surinder Mackey MD Unavailable [phone] Aj Dallas MD Primary Care Provider [phone] Allergies No known active allergies Medications No known medications Active Problems Problem Noted Date Diagnosed Date Joint instability 03/22/2024 Muscle tightness 03/22/2024 Abnormal finding on MRI of brain 03/22/2024 Glaucoma suspect of both eyes 09/21/2017 Optic nerve asymmetry, 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 Myopia, 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 Regular astigmatism, 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 Family History Medical History Relation Comments Drug abuse Father Stroke Father Diabetes Paternal Grandfather Headache No Family History Migraines No Family History No Ocular Disease No Family History Relation Status Comments Father Paternal Grandfather Social History Tobacco Use Types Packs/Day Years Used Date Smoking Tobacco: Never Smokeless Tobacco: Never Alcohol Use Standard Drinks/Week Comments No 0 (1 standard drink = 0.6 oz pur e alcohol) PHQ-2 Answer Date Recorded PHQ-2 score 1 03/08/2024 Area Deprivation Index Answer Date Candido rded National Score (1-100), lowe r number is lower risk 62 03/08/2024 State Score (1-10), lower number is lower risk 4 03/08/2024 Data from: https://www.neighborhoodatlas.medicine.[facility].edu/. Last address used for calculation [address] 03/08/2024 Comments Unknown Sex and Gender Information Value Date Recorded Sex Assigned at Female 02/07/2024 10:20 AM EDT Legal Sex Female 4:23 PM EDT Gender Identity Female 02/07/2024 10:20 AM EDT Sexual Orientation Not on file Plan of Treatment Health Maintenance Due Date Last Done Comments Anxiety Screening 2012 Depression Screening 2012 HIV Screening 2012 Hepatitis C Screening 2012 DTaP,Tdap,Td Vaccine (1 - Tdap) 2013 Hepatitis B Vaccine (1 of 3 - 19+ 3-dose series) 05/01 Cervical Cancer Screening 2015 HPV Vaccine (1 - 3-dose SCDM series) 2021 Influenza Vaccine (#1) 2024 Insurance BLUE PREFERRED EPO Care Teams Laboratory Administrative Director Relationship Specialty Start Date End Date Aj Dallas MD [address] [place] [address] PCP - General Family Medicine 03/08/24 Surinder Mackey MD [address] [place] [address] [place] [address] Orthopedics 01/26/24 Surinder Mackey MD [address] [place] [address] Referring Orthopedics 02/07/24
--- OUTSIDE RECORDS SUMMARY | 2025-01-21 12:20 | XMS_ITS | Clinical Summary ---
Author Organization [facility] Address [address] [place] [address] Care Team Providers Care Inspector And Tester Name Role Phone Antonio Dallas MD Primary Care Provider [phone] Allergies Active Allergy Reactions Criticality Noted Date Comments Penicillins Congestion,Headache, Rash,Shortness of Breath,Swelling High 02/14/2024 Medications No known medications Active Problems No known active problems Social History Tobacco Use Types Packs/Day Years Used Date Smoking Tobacco: Never Smokeless Tobacco: Never Tobacco Cessation:Counseling Given: Not Answered Comments Unknown Sex and Gender Information Value Date Recorded Sex Assigned at Not on file Legal Sex Female 9:18 AM EDT Gender Identity Female 02/14/2024 12:16 PM EDT Sexual Orientation Not on file Plan of Treatment Health Maintenance Due Date Last Done Comments HEPATITIS C VIRUS SCREENING 1994 TETANUS 1994 HIV SCREENING DISCUSSION 2009 HEP B VACCINE (1 of 3 - 19+ 3-dose series) 2013 TDAP (ADULT) 2013 CERVICAL CANCER SCREENING DISCUSSION 2015 HPV VACCINE (1 - 3-dose SCDM series) 2021 COVID-19 VACCINE ( - 2023-2 5 season) 2024 INFLUENZA VACCINE (#1) 2024 PNEUMOCOCCAL VACCINE SERIES Aged Out No longer eligible based on patient's age to complete this topic Insurance [facility] POS Care Teams Inspector And Tester Relationship Specialty Start Date End Date Antonio Dallas MD PCP - General 02/14/24
--- OUTSIDE RECORDS SUMMARY | 2025-01-21 12:20 | XMS_ITS | Encounter Summary ---
Author Organization [facility] Address [address] [facility] [place] [address] Care Team Providers Care Shipper Name Role Phone Corona Marcus Primary Care Provider [phone] Encounter Details Date Type Department Care Team (Late st Contact Info) Description 01/10/2025 Abstract [facility] [address] [place] [address] Gabriel Ventura DO [facility] [address] [place], [place] [address] Social History Tobacco Use Types Packs/Day Years [...] Office Visit [facility] [address] [place] [address] Gabriel Ventura DO [address] [place], [place] [id number] 04/09/2025 2:15 PM EST Office Visit [facility] [address] [place] [id number] Bahman Lechuga, DO [address] [facility] [place] [address] documented as of this encounter Visit Diagnoses Not on filedocumented in this encounter Care Teams Shipper Relationship Specialty Start Date End Date Corona Marcus DO [address] [place] [address] [address] [place] [address] PCP - General Family Medicine 10/10/23 documented as of this encounter
--- OUTSIDE RECORDS SUMMARY | 2025-01-21 12:20 | XMS_ITS | Encounter Summary ---
Author Organization [facility] Address [address] [place] [address] Care Team Providers Care Asbestos Siding Installer Name Role Phone Melissa Díaz MD Primary Care Provider + Heck, Surinder Navarrete MD Unavailable Heck, Surinder Navarrete MD Unavailable [phone] Dallas MD Primary Care Provider [phone] Source Comments In the event this information is protected by the Federal Confidentiality of Alcohol and Drug AbusePatient Records regulations: The Federal rules restrict any use of the information to criminally investigate or prosecute any alcohol or drug abuse patient.[facility] Encounter Details Date Type Department Care Team (Late st Contact Info) Description 03/07/2024 Patient [facility] HB[facility] [place] [address] Monisha Zhang RPh At your next appointment, choose [facility]. Social History Tobacco Use Types Packs/Day Years [...] is lower risk 4 03/08/2024 Data from: https://www.neighborhoodatlas.medicine.[facility].edu/. Last address used for calculation [address] 03/08/2024 Comments Unknown Sex and Gender Information Value Date Recorded Sex Assigned at Female 02/07/2024 10:20 AM EDT Legal Sex Female 4:23 PM EDT Gender Identity Female 02/07/2024 10:20 AM EDT Sexual Orientation Not on file documented as of this encounter Plan of Treatment Not on file documented as of this encounter Visit Diagnoses Not on filedocumented in this encounter Care Teams Asbestos Siding Installer Relationship Specialty Start Date End Date Melissa Díaz MD PCP - General Family Medicine 02/09/16 03/07/24 Aj Dallas MD [address] [place] [address] PCP - General Family Medicine 03/08/24 Surinder Mackey MD [facility] [place] [address] Orthopedics 01/26/24 [facility]inder [facility] [address] Referring Orthopedics 02/07/24 documented as of this encounter
--- OUTSIDE RECORDS SUMMARY | 2025-01-21 12:20 | XMS_ITS | Encounter Summary ---
Author Organization [facility] Address [address] [place] [address] Care Team Providers Care Assorter Laundry Name Role Phone Corona Marcus DO Primary Care Provider Encounter Details Date Type Department Care Team (Late st Contact Info) Description 01/10/2025 Telephone [facility] [address] [place] [address] Marilin Montiel LPN [address] [place] [address] Social History Tobacco Use Types Packs/Day Years [...] encounter Miscellaneous Notes * Telephone Encounter - Marilin Montiel LPN - 01/10/2025 11:31 AM EDT Pt called stating that she was told by [facility] that she should not have any clotting after her surgery.Pt is experiencing some small clots and was not sure if she should be concerned. I called her back and let her know that, that this is normal and nothing to worry about. PVU documented in this encounter Plan of Treatment Upcoming Encounters Date Type Department Care Team (Late st Contact Info) Description 01/23/2025 1:50 PM EDT Office Visit [facility] [address] [facility] [place] [address] Gabriel Ventura DO [address] [facility] [place] [address] 04/09/2025 2:15 PM EST Office Visit [facility] [address] [place] [address] Bahman Lechuga, DO [address] [place] [address] documented as of this encounter Visit Diagnoses Not on filedocumented in this encounter Care Teams Assorter Laundry Relationship Specialty Start Date End Date Corona Marcus DO [address] [place] [address] PCP - General Family Medicine 10/10/23 documented as of this encounter
[2025-01-21 13:35] LABS: Ferritin 48.0 ng/mL (8.0-252.0)
[2025-01-21 13:53] LABS: Hematocrit 34.6 % (36.0-48.0); Hemoglobin 10.8 g/dL (12.0-16.0); Immature Granulocytes Abs Auto 0.05 10^3/uL (0.00-0.03); Immature Granulocytes Pct Auto 0.6 % (0.0-0.5); Lymphocytes Absolute Auto 2.7 10^3/uL (1.2-3.8); Mean Corpuscular HGB Conc 31.2 g/dL (29.9-35.2); Mean Corpuscular Hemoglobin 23.7 pg (26.7-34.0); Mean Corpuscular Volume 76.0 fL (81.0-99.0); Platelet Count 517 10^3/uL (150-450); Red Blood Count 4.55 10^6/uL (4.20-5.40); White Blood Count 8.7 10^3/uL (4.0-11.0)
[2025-01-22 04:12] LABS: Transferrin 256 mg/dL (192-364)
== END 2025-01-21 12:16 | disposition home or self-care (01) ==
LOC: LAB 12:18
PROVIDERS: PCP Family Medicine; Visit Provider Obstetrics & Gynecology
DX: N93.9 Abnormal uterine and vaginal bleeding, unspecified (principal); N80.9 Endometriosis, unspecified; E28.2 Polycystic ovarian syndrome
CPT/HCPCS: 36415; 82728; 84466; 85025